=== PATIENT | female | born 1955 | race Caucasian/White ===

== ENCOUNTER → 2016-06-07 | Outpatient (CLI) | payer BC ==
[~2016-06-07] MED LIST: ADVIN10/60 INH; ALBU1AER9 INH; ASPI325T4 PO; ATOR80TA PO; GLC500 PO; GLIM2TAB PO; ISOS30TA35 PO; LISI5TAB3 PO; LPRUNK PO; ZNTUNK
--- NOTE | 2016-06-07 16:37 | MAMMOGRAPHY REPORT ---
BILATERAL DIGITAL SCREENING MAMMOGRAM TOMOSYNTHESIS WITH CAD: 06/07/2016 CLINICAL HISTORY: Routine screening examination. TECHNIQUE: Breast tomosynthesis in addition to standard 2D mammography was performed. Current study was also evaluated with a Computer Aided Detection (CAD) system. COMPARISON: Comparison is made to exams dated: 06/05/2015 mammogram, 05/20/2015 mammogram, 05/03/2013 mammogram, and 04/26/2012 mammogram - [facility]. BREAST COMPOSITION: There are scattered areas of fibroglandular density in both breasts. FINDINGS: The single pattern is similar to prior exams. There are multiple bilateral benign rim chiquita cifications in the breasts. A stable metallic biopsy marker in the right upper outer quadrant. No new suspicious mass, architectural distortion or cluster of microcalcifications is seen. IMPRESSION: ACR BI-RADS CATEGORY 1: NEGATIVE There is no mammographic evidence of malignancy. A 1 year screening mammogram is recommended. The p atient will receive written notification of the results. Approximately 10% of breast cancers are not detected with mammography. A negative mammographic repor t should not delay biopsy if a clinically suggestive mass is present. Delores Presley M.D. ay/:06/07/2016 15:23:19 Impregnator And Drier Helper: Katt DENISE(Sandra)(Eddie), [facility] letter sent: Normal 1/2 BI-RADS Code: ACR BI-RADS Category 1: Negative
== END | disposition home or self-care (01) ==
LOC: C.MAMM 11:13
PROVIDERS: ATTEND Internal Medicine
DX: Z12.31 Encounter for screening mammogram for malignant neoplasm of breast (principal)

== ENCOUNTER → 2016-06-21 | Outpatient (CLI) | payer BC ==
--- NOTE | 2016-06-21 14:13 | DIAGNOSTIC IMAGING REPORT ---
TWO VIEW CHEST CLINICAL HISTORY: Cough of 3 months duration. Wheezing. FINDINGS: PA and lateral chest radiographs are correlated with chest CT dated 09/17/2015. The patient is status post midline sternotomy. The heart is enlarged and there is atherosclerotic calcification of the thoracic ureter. The pulmonary vasculature is noncongested. Chronic interstitial thickening is similar to previous. There is no airspace consolidation or pleural effusion. There is no pneumothorax. The skeletal structures are osteopenic. The bony thorax appears intact. Cholecystectomy clips are identified in the right upper quadrant. IMPRESSION: Cardiac enlargement with no acute cardiopulmonary abnormality. Electronically signed by: Morro Alexander M.D. 06/21/2016 2:11 PM Dictated Date/Time: 06/21/2016 2:09 PM
== END | disposition home or self-care (01) ==
LOC: C.RAD 13:48
PROVIDERS: ATTEND Internal Medicine
DX: R05 Cough (principal); I51.7 Cardiomegaly

== ENCOUNTER → 2016-06-23 | Outpatient (CLI) | payer BC ==
[2016-06-23 12:23] LABS: HEMATOCRIT 44.5 % (37-47); MEAN CELL VOLUME 93.7 fL (80-100); MEAN CORPUSCULAR HEMOGLOBIN 30.5 pg (25-34); MEAN CORPUSCULAR HGB CONC 32.6 g/dl (32-36); MEAN PLATELET VOLUME 10.4 fL (7.4-10.4); PLATELET COUNT 247 K/uL (130-400); RED BLOOD COUNT 4.75 M/uL (4.2-5.4); WHITE BLOOD COUNT 7.47 K/uL (4.8-10.8)
[2016-06-23 12:34] LABS: ESTIMATED AVERAGE GLUCOSE 163 mg/dl; HA1C FLAG Normal (Normal)
[2016-06-23 12:43] LABS: ALT/SGPT 36 U/L (12-78); BLOOD UREA NITROGEN 14 mg/dl (7-18); BUN/CREATININE RATIO 15.8 (10-20); CALCIUM 9.3 mg/dl (8.5-10.1); CARBON DIOXIDE 26 mmol/L (21-32); CHLORIDE 102 mmol/L (98-107); CHOLESTEROL 206 mg/dl (0-200); CREATININE 0.86 mg/dl (0.60-1.20); GLUCOSE 156 mg/dl (70-99); POTASSIUM 4.3 mmol/L (3.5-5.1); SODIUM 139 mmol/L (136-145); TRIGLYCERIDES 157 mg/dl (0-150); VERY LOW DENSITY LIPOPROT CALC 31 mg/dl
[2016-06-23 12:54] LABS: ALB/GLOB RATIO 0.9 (0.9-2); ALKALINE PHOSPHATASE 85 U/L (45-117); AST/SGOT 24 U/L (15-37); CHOLESTEROL/HDL RATIO 4.6; HDL CHOLESTEROL 45 mg/dl; LDL CHOLESTEROL CALCULATED 130 mg/dl
[2016-06-23 13:05] LABS: RATIO 11.7 mcg/mg (0-30.0)
== END | disposition home or self-care (01) ==
LOC: C.LABBFT 07:37
PROVIDERS: ATTEND Internal Medicine
DX: I25.10 Atherosclerotic heart disease of native coronary artery without angina pectoris (principal); M85.80 Other specified disorders of bone density and structure, unspecified site; E11.9 Type 2 diabetes mellitus without complications; R05 Cough; I51.7 Cardiomegaly

== ENCOUNTER → 2016-07-07 | Outpatient (CLI) | payer BC | END | disposition home or self-care (01) | LOC: C.MAMM 11:18 | PROVIDERS: ATTEND Internal Medicine | DX: M85.80 Other specified disorders of bone density and structure, unspecified site (principal) ==

== ENCOUNTER → 2016-08-26 | Outpatient (CLI) | payer BC | END | disposition home or self-care (01) | LOC: C.LABBFT 07:47 | PROVIDERS: ATTEND Internal Medicine | DX: E55.9 Vitamin D deficiency, unspecified (principal) ==

== ENCOUNTER → 2016-11-24 | Outpatient (CLI) | payer BC ==
[2016-11-24 12:05] LABS: HEMATOCRIT 40.8 % (37-47); MEAN CELL VOLUME 95.1 fL (80-100); MEAN CORPUSCULAR HEMOGLOBIN 30.3 pg (25-34); MEAN CORPUSCULAR HGB CONC 31.9 g/dl (32-36); MEAN PLATELET VOLUME 10.4 fL (7.4-10.4); PLATELET COUNT 224 K/uL (130-400); RED BLOOD COUNT 4.29 M/uL (4.2-5.4); WHITE BLOOD COUNT 8.35 K/uL (4.8-10.8)
[2016-11-24 12:23] LABS: ALT/SGPT 44 U/L (12-78); BLOOD UREA NITROGEN 23 mg/dl (7-18); BUN/CREATININE RATIO 25.1 (10-20); CALCIUM 9.1 mg/dl (8.5-10.1); CARBON DIOXIDE 29 mmol/L (21-32); CHLORIDE 107 mmol/L (98-107); CHOLESTEROL 124 mg/dl (0-200); CREATININE 0.93 mg/dl (0.60-1.20); GLUCOSE 108 mg/dl (70-99); POTASSIUM 4.7 mmol/L (3.5-5.1); SODIUM 141 mmol/L (136-145); TRIGLYCERIDES 121 mg/dl (0-150); VERY LOW DENSITY LIPOPROT CALC 24 mg/dl
[2016-11-24 12:33] LABS: ALB/GLOB RATIO 0.8 (0.9-2); ALKALINE PHOSPHATASE 89 U/L (45-117); AST/SGOT 26 U/L (15-37); CHOLESTEROL/HDL RATIO 2.5; HDL CHOLESTEROL 49 mg/dl; LDL CHOLESTEROL CALCULATED 51 mg/dl
[2016-11-24 13:33] LABS: ESTIMATED AVERAGE GLUCOSE 146 mg/dl; HA1C FLAG Normal (Normal)
== END | disposition home or self-care (01) ==
LOC: C.LABBFT 07:26
PROVIDERS: ATTEND Internal Medicine
DX: I25.10 Atherosclerotic heart disease of native coronary artery without angina pectoris (principal); E11.65 Type 2 diabetes mellitus with hyperglycemia

== ENCOUNTER 2017-05-11 11:11 | Observation (INO) | payer BC ==
[~2017-05-11] VITALS: Ht 165.1 cm; Wt 135.0 kg
[2017-05-11] MEDS ORDERED: GLC/500 PO (11:57)
[2017-05-11] MEDS ORDERED: ATOR-24 PO (11:57)
[2017-05-11] MEDS ORDERED: METO100T44 PO ×2 (11:57)
[2017-05-11] MEDS ORDERED: CITA20TA4 PO (11:57)
[2017-05-11] MEDS ORDERED: LISI-461 PO (11:57)
[2017-05-11] MEDS ORDERED: ISOS30TA35 PO (11:57)
[2017-05-11] MEDS ORDERED: VNTHFA/IN INH (11:57)
[2017-05-11] MEDS ORDERED: GLIM2TAB2 PO (11:57)
[2017-05-11] MEDS ORDERED: ERGO500037 PO (11:57)
[2017-05-11] MEDS ORDERED: ZNTT/150 PO (11:57)
[2017-05-11] MEDS ORDERED: CYCL10TA6 PO (11:57)
[2017-05-11] MEDS ORDERED: SYMIN160 INH (11:57)
[2017-05-11] MEDS ORDERED: ASPI81TA28 PO (11:57)
[2017-05-11] MEDS ORDERED: ONDANSETRON INJ 2 MG/ML 2 ML VIAL IV STA (12:03)
[2017-05-11] MEDS ORDERED: ACETAMINOPHEN 500 MG TAB PO STA (12:03)
[2017-05-11] MEDS ORDERED: KETOROLAC TROMETHAMINE 30 MG/ML VIAL IV STA (12:03)
--- NOTE | 2017-05-11 12:11 | EMERGENCY ROOM VISIT NOTE ---
History Report prepared by Radhika: Madonna Montes Under the Supervision of: Dr. Morro Richter M.D. First contact with patient: 11:56 Chief Complaint: HIP PAIN Stated Complaint: PAIN IN HIP AND LEG History of Present Illness The patient is a 61 year old female who presents to the Emergency Room with complaints of persistent right hip pain that began five days ago. She currently rates her discomfort as a 10/10 in severity. The patient states that her pain started Monday. She denies any trauma or injury. The patient denies having any trouble in the past. She reports increased pain with ambulation. The patient states that she saw her chiropractor earlier this week due to her pain and states that this morning he ordered x-rays of the area. She states that she tried getting in to see her PCP, but could not schedule an appointment. The patient states that her pain radiates from her right hip, down her right buttocks and down her right leg. She states that she tried Advil over the counter without relief of her pain. The patient states that she had some old hydrocodone left over from an ankle injury in 2006, noting that she tried that, but states that it has only taken the edge off the pain temporarily. She denies any urinary symptoms. The patient reports hot and cold flashes. Source of History: patient Onset: five days ago Position: other (right hip) Symptom Intensity: 10/10 Quality: other (radiating) Timing: other (persistent) Modifying Factors (Worsening): movement (ambulation) Associated Symptoms: No urinary symptoms Note: Associated Symptoms: hot and cold flashes Review of Systems See HPI for pertinent positives & negatives. A total of 10 systems reviewed and were otherwise negative. Past Medical & Surgical Medical Problems: (1) Asthma (2) Diabetes (3) Heart disease (4) History of cholecystectomy (5) Hypertension Surgical Problems: (1) H/O: hysterectomy (2) S/P triple vessel bypass Family History FH: heart disease Hypertension Social History Smoking Status: Never Smoker Current/Historical Medications Scheduled Aspirin (Aspirin Ec), 81 MG PO DAILY Atorvastatin (Lipitor), 40 MG PO DAILY Budesonide/Formoterol Fumarate (Symbicort 160/4.5 Inhaler ), 2 PUFFS INH BID Citalopram Hydrobromide (Citalopram Hydrobromide), 20 MG PO DAILY Ergocalciferol (Vitamin D 26700 Unit), 50,000 UNIT PO WK Glimepiride (Glimepiride), 2 MG PO DAILY Isosorbide Mononitrate Ext Rel (Imdur Ext Rel), 30 MG PO DAILY Lisinopril (Zestril), 10 MG PO DAILY Metformin Hcl (Glucophage), 500 MG PO BIDM Metoprolol Succ (Toprol Xl) (Toprol-Xl ), 50 MG PO QAM Metoprolol Succ (Toprol Xl) (Toprol-Xl ), 100 MG PO QPM Ranitidine (Zantac), 150 MG PO DAILY Scheduled PRN Albuterol Hfa (Ventolin Hfa), 2 PUFFS INH Q4H PRN for SOB/Wheezing Cyclobenzaprine Hcl (Flexeril), 10 MG PO TID PRN for Muscle Spasms Allergies Coded Allergies: Azithromycin (Verified Allergy, Intermediate, RASH, 05/11/17) Dust Mite Extract (Verified Allergy, Intermediate, ALLERGIC, 03/13/12) Physical Exam Vital Signs Date Time Temp Pulse Resp B/P (MAP) Pulse Ox O2 Delivery O2 Flow Rate FiO2 05/11/17 13:19 58 20 135/70 100 Room Air 05/11/17 11:13 36.6 62 20 198/74 100 Room Air Physical Exam GENERAL: Patient is in mild distress secondary to pain HEENT: No acute trauma, normocephalic atraumatic, mucous membranes moist, no nasal congestion, no scleral icterus. NECK: No stridor, no adenopathy, no meningismus, trachea is midline. LUNGS: Clear to auscultation bilaterally, no wheeze, no rhonchi, breath sounds equal. HEART: Without murmurs gallops or rubs, regular rate and rhythm. ABDOMEN: Soft, nontender, bowel sounds positive, no hernias, no peritonitis. EXTREMITIES: Painful with movement and palpation of right hip, right hip laterally is tender, right buttock is tender, no signs of contusion, no evidence for gross deformity of the RLE, NVI distally. NEUROLOGIC: Oriented x 3, no acute motor or sensory deficits, no focal weakness. SKIN: No rash, no jaundice, no diaphoresis. Medical Decision & Procedures ER Provider Diagnostic Interpretation: Radiology results as stated below per my review and radiologist interpretation: LUMBAR SPINE WITHOUT CLINICAL HISTORY: 61 years-old Female presenting with low back and right hip and leg pain. TECHNIQUE: Multidetector CT of the lumbar spine was performed without the use of intravenous contrast. IV contrast: None. A dose lowering technique was used consistent with the principles of ALARA (as low as reasonably achievable). COMPARISON: None. CT DOSE (mGy.cm): The estimated cumulative dose is 2915.[address] right hip. FINDINGS: Genetics Physician topogram: Cholecystectomy clips, median sternotomy wires, and mediastinal surgical clips noted. Normal lumbar lordosis. Vertebral bodies maintain normal height and alignment. Normal bone density. Intervertebral disc spaces preserved. Facet arthropathy evident in the lower lumbar spine. Minimal disc bulges may be present most pronounced at L3-4. The degree of spinal canal narrowing at this level is difficult to quantify, however, no significant osseous spinal canal narrowing. Bilateral neural foraminal narrowing at L4-5 suggested, greater on the right. No acute fracture or subluxation. Mild degenerative changes of the sacroiliac joints. Remaining visualized structures demonstrate atherosclerosis of the abdominal aorta. Normal paraspinal musculature. IMPRESSION: Mild multilevel degenerative changes significant at L3-4, where there is spinal canal narrowing, and L4-5, where there is bilateral neural foraminal narrowing. This would be better characterized on MR. Electronically signed by: Adrien Bedoya M.D. 05/11/2017 12:57 PM Dictated Date/Time: 05/11/2017 12:53 PM R LOWER EXTREMITY WITHOUT CLINICAL HISTORY: 61 years-old Female presenting with right hip pain. TECHNIQUE: Multidetector CT of the right hip was performed without the use of intravenous contrast. IV contrast: None. A dose lowering technique was used consistent with the principles of ALARA (as low as reasonably achievable). COMPARISON: None. CT DOSE (mGy.cm): The estimated cumulative dose is 2915.88 mGy.cm. FINDINGS: Genetics Physician topogram: Cholecystectomy clips, mediastinal surgical clips, median sternotomy wires noted. Right hip joint congruent. No acute fracture or malalignment. No deformity of the femoral head. No advanced degenerative changes of the hip joint are evident. Degenerative changes of the symphysis pubis.. Preservation of the joint space. No evidence of a hip effusion. Normal muscle bulk. No soft tissue abnormality is evident. Visualized portion of the intrapelvic contents normal. IMPRESSION: No osseous abnormality right hip. Degenerative changes of the pubic symphysis. Electronically signed by: Adrien Bedoya M.D. 05/11/2017 12:53 PM Dictated Date/Time: 05/11/2017 12:50 PM Laboratory Results 05/11/17 12:20 Red Blood Count 4.65, Mean Corpuscular Volume 92.5, Mean Corpuscular Hemoglobin 31.2, Mean Corpuscular Hemoglobin Concent 33.7, Mean Platelet Volume 9.3, Neutrophils (%) (Auto) 76.2, Lymphocytes (%) (Auto) 16.5, Monocytes (%) (Auto) 6.1, Eosinophils (%) (Auto) 0.9, Basophils (%) (Auto) 0.1, Neutrophils # (Auto) 6.91, Lymphocytes # (Auto) 1.50, Monocytes # (Auto) 0.55, Eosinophils # (Auto) 0.08, Basophils # (Auto) 0.01 05/11/17 12:20 Test 05/11/17 12:20 05/11/17 13:30 White Blood Count 9.07 K/uL (4.8-10.8) Red Blood Count 4.65 M/uL (4.2-5.4) Hemoglobin 14.5 g/dL (12.0-16.0) Hematocrit 43.0 % (37-47) Mean Corpuscular Volume 92.5 fL (80-100) Mean Corpuscular Hemoglobin 31.2 pg (25-34) Mean Corpuscular Hemoglobin Concent 33.7 g/dl (32-36) Platelet Count 252 K/uL (130-400) Mean Platelet Volume 9.3 fL (7.4-10.4) Neutrophils (%) (Auto) 76.2 % Lymphocytes (%) (Auto) 16.5 % Monocytes (%) (Auto) 6.1 % Eosinophils (%) (Auto) 0.9 % Basophils (%) (Auto) 0.1 % Neutrophils # (Auto) 6.91 K/uL (1.4-6.5) Lymphocytes # (Auto) 1.50 K/uL (1.2-3.4) Monocytes # (Auto) 0.55 K/uL (0.11-0.59) Eosinophils # (Auto) 0.08 K/uL (0-0.5) Basophils # (Auto) 0.01 K/uL (0-0.2) RDW Standard Deviation 46.8 fL (36.4-46.3) RDW Coefficient of Variation 14.1 % (11.5-14.5) Immature Granulocyte % (Auto) 0.2 % Immature Granulocyte # (Auto) 0.02 K/uL (0.00-0.02) Erythrocyte Sedimentation Rate 36 mm/hr (0-21) Anion Gap 10.0 mmol/L (3-11) Estimated GFR () 109.9 Estimated GFR (Non- 94.8 BUN/Creatinine Ratio 19.8 (10-20) Calcium Level 8.9 mg/dl (8.5-10.1) C-Reactive Protein 0.61 mg/dl (0-0.29) Urine Color YELLOW Urine Appearance CLEAR (CLEAR) Urine pH 8.0 (4.5-7.5) Urine Specific [place] 1.025 (1.000-1.030) Urine Protein NEG (NEG) Urine Glucose (UA) NEG (NEG) Urine Ketones 4+ (NEG) Urine Occult Blood NEG (NEG) Urine Nitrite NEG (NEG) Urine Bilirubin NEG (NEG) Urine Urobilinogen NEG (NEG) Urine Leukocyte Esterase NEG (NEG) Laboratory results reviewed by me. Medications Administered Medications (Trade) Dose Ordered Sig/Beny Route Start Time Stop Time Status Last Admin Dose Admin Ketorolac Tromethamine (Toradol Inj) 30 mg NOW STAT IV 05/11/17 12:03 05/11/17 12:06 DC 05/11/17 12:23 30 MG Acetaminophen (Tylenol Tab) 1,000 mg NOW STAT PO 05/11/17 12:03 05/11/17 12:06 DC 05/11/17 12:21 1,000 MG Morphine Sulfate (MoRPHine SULFATE INJ) 4 mg Q15M PRN IV 05/11/17 12:15 05/25/17 12:14 05/11/17 12:23 4 MG Ondansetron HCl (Zofran Inj) 4 mg NOW STAT IV 05/11/17 12:03 05/11/17 12:06 DC 05/11/17 12:23 4 MG Dexamethasone Sodium Phosphate 10 mg/Syringe 2.5 ml @ 1 mls/min NOW STAT IV 05/11/17 13:42 05/11/17 13:44 DC 05/11/17 13:58 1 MLS/MIN Hydromorphone HCl (Dilaudid Inj) 0.5 mg NOW STAT IV 05/11/17 13:42 05/11/17 13:44 DC 05/11/17 13:53 0.5 MG ED Course 1200: The patient was evaluated in room C7. A complete history and physical exam was performed. 1203: Ordered Zofran Inj 4 mg IV, Tylenol Tab 1000 mg PO, Toradol Inj 30 mg IV. 1215: Ordered Morphine Sulfate 4 mg IV. 1339: I reevaluated the patient and she is still experiencing pain. I discussed the test results with her and I discussed the treatment plan. She verbalized complete understanding and agreement. She is going to be evaluated for further treatment. 1342: Ordered Dilaudid Inj 0.5 mg IV, Dexamethasone Sodium Phosphate 10 mg/ Syringe 2.5 ml @ 1 mls/min IV. 1352: I discussed the patients case with AMANDA Zee. He is going to evaluate the patient for further treatment. Medical Decision The patient is a 61 year old female who presents to the ED with complaints of right hip pain. Differential diagnoses considered include Osteoarthritis, joint effusion, sciatica, nerve impingement, herniated disc disease, bursitis, fracture . There is no leukocytosis or concerning anemia. No significant electrolyte abnormality or kidney failure. Urinalysis suggests some possible dehydration, no infection. Sedimentation rate and CRP levels were both mildly elevated. Lumbar spine CT shows some areas of stenosis, no fracture. Right hip CT does not show fracture or significant arthritis. Patient received oral Tylenol, IV Zofran, IV morphine, IV Toradol, IV Decadron and eventually some IV Dilaudid. The patient does feel improved but her pain becomes more severe with movement. The patient likely has nerve impingement/sciatica, she may have a herniated disc. She has failed outpatient treatment. She is unable to get comfortable with IV narcotic medication and IV nonsteroidal medication. I think a hospital stay is warranted. I spoke to the patient and case management. The on-call hospitalist was consulted. Medication Reconcilliation Current Medication List: was personally reviewed by me Consults Time Called: 134 Consulting Physician: AMANDA Zee Returned Call: [phone] I discussed the patients case with AMANDA Zee. He is going to evaluate the patient for further treatment. Impression Primary Impression: Right sided sciatica Additional Impressions: Right hip pain Lower back pain Failure of outpatient treatment Scribe Attestation The scribe's documentation has been prepared under my direction and personally reviewed by me in its entirety. I confirm that the note above accurately reflects all work, treatment, procedures, and medical decision making performed by me. Departure Information Dispostion Being Evaluated By Hospitalist Referrals Jorge Hebert M.D. (PCP) Problem Qualifiers
[2017-05-11] MEDS ORDERED: MoRPHine SULFATE 4 MG/ML 1 ML CARP\\VIAL IV PRN (12:15)
[2017-05-11 12:45] LABS: BASO % 0.1 %; BASO ABS # 0.01 K/uL (0-0.2); COMPLETE YES; EOS % 0.9 %; IG% 0.2 %; LYMPH % 16.5 %; MEAN CELL VOLUME 92.5 fL (80-100); MEAN CORPUSCULAR HEMOGLOBIN 31.2 pg (25-34); MEAN CORPUSCULAR HGB CONC 33.7 g/dl (32-36); MEAN PLATELET VOLUME 9.3 fL (7.4-10.4); MONO % 6.1 %; NEUT % 76.2 %; PLATELET COUNT 252 K/uL (130-400); RED BLOOD COUNT 4.65 M/uL (4.2-5.4); WHITE BLOOD COUNT 9.07 K/uL (4.8-10.8)
--- NOTE | 2017-05-11 12:54 | DIAGNOSTIC IMAGING REPORT ---
R LOWER EXTREMITY WITHOUT CLINICAL HISTORY: 61 years-old Female presenting with right hip pain. TECHNIQUE: Multidetector CT of the right hip was performed without the use of intravenous contrast. IV contrast: None. A dose lowering technique was used consistent with the principles of ALARA (as low as reasonably achievable). COMPARISON: None. CT DOSE (mGy.cm): The estimated cumulative dose is 2915.88 mGy.cm. 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 Right hip joint congruent. No acute fracture or malalignment. No deformity of the femoral head. No advanced degenerative changes of the hip joint are evident. Degenerative changes of the symphysis pubis.. Preservation of the joint space. No evidence of a hip effusion. Normal muscle bulk. No soft tissue abnormality is evident. Visualized portion of the intrapelvic contents normal. IMPRESSION: No osseous abnormality right hip. Degenerative changes of the pubic symphysis. Electronically signed by: Adrien Bedoya M.D. 05/11/2017 12:53 PM Dictated Date/Time: 05/11/2017 12:50 PM
--- NOTE | 2017-05-11 12:59 | DIAGNOSTIC IMAGING REPORT ---
LUMBAR SPINE WITHOUT CLINICAL HISTORY: 61 years-old Female presenting with low back and right hip and leg pain. TECHNIQUE: Multidetector CT of the lumbar spine was performed without the use of intravenous contrast. IV contrast: None. A dose lowering technique was used consistent with the principles of ALARA (as low as reasonably achievable). COMPARISON: None. CT DOSE (mGy.cm): The estimated cumulative dose is 2915.[address] right hip. 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 Normal lumbar lordosis. Vertebral bodies maintain normal height and alignment. Normal bone density. Intervertebral disc spaces preserved. Facet arthropathy evident in the lower lumbar spine. Minimal disc bulges may be present most pronounced at L3-4. The degree of spinal canal narrowing at this level is difficult to quantify, however, no significant osseous spinal canal narrowing. Bilateral neural foraminal narrowing at L4-5 suggested, greater on the right. No acute fracture or subluxation. Mild degenerative changes of the sacroiliac joints. Remaining visualized structures demonstrate atherosclerosis of the abdominal aorta. Normal paraspinal musculature. IMPRESSION: Mild multilevel degenerative changes significant at L3-4, where there is spinal canal narrowing, and L4-5, where there is bilateral neural foraminal narrowing. This would be better characterized on MR. Electronically signed by: Adrien Bedoya M.D. 05/11/2017 12:57 PM Dictated Date/Time: 05/11/2017 12:53 PM
[2017-05-11 13:02] LABS: BLOOD UREA NITROGEN 14 mg/dl (7-18); BUN/CREATININE RATIO 19.8 (10-20); C-REACTIVE PROTEIN 0.61 mg/dl (0-0.29); CALCIUM 8.9 mg/dl (8.5-10.1); CARBON DIOXIDE 23 mmol/L (21-32); CHLORIDE 105 mmol/L (98-107); GLUCOSE 105 mg/dl (70-99); POTASSIUM 3.8 mmol/L (3.5-5.1); SODIUM 138 mmol/L (136-145)
[2017-05-11] MEDS ORDERED: HYDROmorphone INJ 2 MG/ML SYR/VIAL IV STA (13:42)
[2017-05-11] MEDS ORDERED: DEXAMETHASONE INJ 10 MG in SYRINGE 0 ML IV STA (13:42)
[2017-05-11] MEDS ORDERED: DEXAMETHASONE **PF** INJ 10 MG/ML VIAL ONE (13:56)
[2017-05-11] MEDS ORDERED: ALBUTEROL HFA 8 GM INHALER INH PRN (14:00)
[2017-05-11] MEDS ORDERED: ONDANSETRON INJ 2 MG/ML 2 ML VIAL IV PRN (14:00)
[2017-05-11] MEDS ORDERED: HYDROCODONE/ACETAMI 10/325 TAB PO PRN (14:00)
[2017-05-11] MEDS ORDERED: CYCLOBENZAPRINE HCL 10 MG TAB PO PRN (14:00)
[2017-05-11] MEDS ORDERED: ACETAMINOPHEN 325 MG TAB PO PRN (14:00)
[2017-05-11 14:04] LABS: URINE APPEARANCE CLEAR (CLEAR); URINE BILIRUBIN NEG (NEG); URINE COLOR YELLOW; URINE NITRITE NEG (NEG); URINE SPECIFIC GRAVITY 1.025 (1.000-1.030); UROBILINOGEN NEG (NEG)
[2017-05-11 14:10] VITALS: O2SAT 100; Ht 165.1 cm; Wt 135.0 kg
[2017-05-11 14:11] LABS: MANUAL MICROSCOPIC REQUIRED? NO; REVIEW REQ? NO
[2017-05-11] MEDS ORDERED: IV FLUIDS COMPLETED PRN (15:00)
[2017-05-11] MEDS ORDERED: GLUCOSE 40% GEL 15 GM TUBE PO PRN (15:30)
[2017-05-11] MEDS ORDERED: DEXTROSE 50% 50 ML SYR IV PRN (15:30)
[2017-05-11] MEDS ORDERED: GLUCOSE 10 TABS/TUBE PO PRN (15:30)
[2017-05-11] MEDS ORDERED: GLUCAGON FOR INJ 1 MG VIAL SQ PRN (15:30)
[2017-05-11 15:38] LABS: PROTHROMBIN TIME (PATIENT) 10.9 SECONDS (9.0-12.0)
[2017-05-11 15:57] VITALS: BP 178/84; PULSE 57; TEMP 36.6; O2SAT 98
[2017-05-11] MEDS: INSULIN ASPART 100 UNITS/ML 3 ML PEN SC SCH ×3 (16:00→21:00)
--- NOTE | 2017-05-11 16:38 | History and Physical ---
History & Physical Date & Time of Service: May 11, 2017 at 16:14 Chief Complaint: Lower Back Pain, Right Sided Sciatica Primary Care Physician: Jorge Hebert M.D. History of Present Illness Source: patient, hospital records 61 yo female with acute presentation of right sided low back pain with sharp, severe pain in her right leg all the way to her foot. She denies any history of low back pain. No recent trauma, no overuse. No fever/chills. She says that she woke up with the pain on Monday morning. Could not find a position of comfort. She had hydrocodone at home from prior surgery, she tried taking those for the pain, would not alleviate her symptoms. She denies any numbness, tingling or weakness in the right leg. She does not have any symptoms in the left leg. Her balance has been intact, no falls. Her appetite has been poor for a few days just dealing with the pain. She came to the ED today because the pain had become unbearable. In the ED she was given Toradol and Dexamethasone with no relief. She finally got some relief with Dilaudid IV. CT of her lumbar spine and right hip was performed. No acute issues with the right hip. Lumbar spine with degenerative disc disease, canal narrowing and foraminal narrowing. Past Medical/Surgical History Medical Problems: (1) Asthma Status: Chronic (2) Diabetes Status: Chronic (3) Heart disease Status: Chronic (4) History of cholecystectomy Status: Resolved (5) Hypertension Status: Chronic Surgical Problems: (1) H/O: hysterectomy Status: Resolved (2) S/P triple vessel bypass Status: Resolved Family History FH: heart disease Hypertension Father - [place] Mother - ischemic stroke Social History Smoking Status: Never Smoker Alcohol Use: none Drug Use: none Occupational Status: employed Immunizations History of Influenza Vaccine: Yes Influenza Vaccine Date: Aug 12, 2011 History of Tetanus Vaccine?: No History of Pneumococcal: Yes Pneumococcal Date: Mar 13, 2012 History of Hepatitis B Vaccine: Yes Hepatitis Immunization Date: Aug 12, 2011 Multi-Drug Resistant Organisms History of MDRO: No Allergies Coded Allergies: Azithromycin (Verified Allergy, Intermediate, RASH, 05/11/17) Dust Mite Extract (Verified Allergy, Intermediate, ALLERGIC, 03/13/12) Home Medications Scheduled Aspirin (Aspirin Ec), 81 MG PO DAILY Atorvastatin (Lipitor), 40 MG PO DAILY Budesonide/Formoterol Fumarate (Symbicort 160/4.5 Inhaler ), 2 PUFFS INH BID Citalopram Hydrobromide (Citalopram Hydrobromide), 20 MG PO DAILY Ergocalciferol (Vitamin D 77615 Unit), 50,000 UNIT PO WK Glimepiride (Glimepiride), 2 MG PO DAILY Isosorbide Mononitrate Ext Rel (Imdur Ext Rel), 30 MG PO DAILY Lisinopril (Zestril), 10 MG PO DAILY Metformin Hcl (Glucophage), 500 MG PO BIDM Metoprolol Succ (Toprol Xl) (Toprol-Xl ), 50 MG PO QAM Metoprolol Succ (Toprol Xl) (Toprol-Xl ), 100 MG PO QPM Ranitidine (Zantac), 150 MG PO DAILY Scheduled PRN Albuterol Hfa (Ventolin Hfa), 2 PUFFS INH Q4H PRN for SOB/Wheezing Cyclobenzaprine Hcl (Flexeril), 10 MG PO TID PRN for Muscle Spasms Review of Systems Constitutional: No fever, No chills, No sweats, No weight loss, No weakness, No fatigue, No problem reported Eyes: No worsening of vision, No eye pain, No redness, No discharge, No diplopia, No problem reported ENT: No hearing loss, No unusual epistaxis, No nasal symptoms, No sore throat, No tinnitus, No dental problems, No trouble swallowing, No problem reported Respiratory: No cough, No sputum, No wheezing, No shortness of breath, No dyspnea on exertion, No dyspnea at rest, No hemoptysis, No problem reported Cardiovascular: No chest pain, No orthopnea, No PND, No edema, No claudication , No palpitations, No problem reported Abdomen: No pain, No nausea, No vomiting, No diarrhea, No constipation, No GI bleeding, No problem reported Musculoskeletal: + joint pain (low back, right leg), + muscle pain (right leg) Genitourinary - Female: No dysuria, No urinary frequency, No urinary urgency, No urinary incontinence, No urinary retention, No hematuria Neurologic: No memory loss, No paralysis, No weakness, No numbness/tingling, No vertigo, No balance problems, No problem reported Psychiatric: No depression symptoms, No anhedonism, No anxiety, No insomnia, No substance abuse, No problem reported Endocrine: No fatigue, No excessive thirst, No excessive urination, No problem reported Hematologic / Lymphatic: No abnormal bleeding/bruising, No clotting problems, No swollen lymph nodes, No night sweats, No problem reported Integumentary: No rash, No itch, No new/changing skin lesions, No color change , No bleeding, No problem reported Allergic / Immunologic: No environmental allergies, No seasonal allergies, No pet sensitivities, No food allergies, No hives, No frequent infections, No poor healing, No prolonged convalescence, No problem reported Physical Exam Vital Signs Date Time Temp Pulse Resp B/P (MAP) Pulse Ox O2 Delivery O2 Flow Rate FiO2 05/11/17 14:33 57 16 197/73 95 Room Air 05/11/17 14:10 100 Room Air 05/11/17 13:19 58 20 135/70 100 Room Air 05/11/17 11:13 36.6 62 20 198/74 100 Room Air General Appearance: no apparent distress, + obese Head: normocephalic, atraumatic Eyes: normal inspection, EOMI, sclerae normal ENT: normal ENT inspection, hearing grossly normal, pharynx normal Neck: supple, no adenopathy, no JVD, trachea midline Respiratory/Chest: chest non-tender, lungs clear, normal breath sounds, no respiratory distress, no accessory muscle use Cardiovascular: regular rate, rhythm, no edema, no gallop, no JVD, no murmur, normal peripheral pulses Abdomen/GI: normal bowel sounds, non tender, soft, no organomegaly Back: + muscle spasm, + decreased range of motion Extremities/Musculoskelatal: normal inspection, no calf tenderness, normal capillary refill, no pedal edema, non-tender, pelvis stable, + pertinent finding (+ straightl leg raise test on the right) 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, no motor/sensory deficits, alert, normal mood/affect, normal reflexes, oriented x 3 Skin: normal color, warm/dry, no rash Lymphatic: no adenopathy Diagnostics Laboratory Results Results Past 24 Hours Test 05/11/17 12:20 05/11/17 13:30 Range/Units White Blood Count 9.07 4.8-10.8 K/uL Red Blood Count 4.65 4.2-5.4 M/uL Hemoglobin 14.5 12.0-16.0 g/dL Hematocrit 43.0 37-47 % Mean Corpuscular Volume 92.5 80-100 fL Mean Corpuscular Hemoglobin 31.2 25-34 pg Mean Corpuscular Hemoglobin Concent 33.7 32-36 g/dl Platelet Count 252 130-400 K/uL Mean Platelet Volume 9.3 7.4-10.4 fL Neutrophils (%) (Auto) 76.2 % Lymphocytes (%) (Auto) 16.5 % Monocytes (%) (Auto) 6.1 % Eosinophils (%) (Auto) 0.9 % Basophils (%) (Auto) 0.1 % Neutrophils # (Auto) 6.91 1.4-6.5 K/uL Lymphocytes # (Auto) 1.50 1.2-3.4 K/uL Monocytes # (Auto) 0.55 0.11-0.59 K/uL Eosinophils # (Auto) 0.08 0-0.5 K/uL Basophils # (Auto) 0.01 0-0.2 K/uL RDW Standard Deviation 46.8 36.4-46.3 fL RDW Coefficient of Variation 14.1 11.5-14.5 % Immature Granulocyte % (Auto) 0.2 % Immature Granulocyte # (Auto) 0.02 0.00-0.02 K/uL Erythrocyte Sedimentation Rate 36 0-21 mm/hr Prothrombin Time 10.9 9.0-12.0 SECONDS Prothromb Time International Ratio 1.0 0.9-1.1 Activated Partial Thromboplast Time 25.0 21.0-31.0 SECONDS Partial Thromboplastin Ratio 1.0 Sodium Level 138 136-145 mmol/L Potassium Level 3.8 3.5-5.1 mmol/L Chloride Level 105 98-107 mmol/L Carbon Dioxide Level 23 21-32 mmol/L Anion Gap 10.0 3-11 mmol/L Blood Urea Nitrogen 14 7-18 mg/dl Creatinine 0.70 0.60-1.20 mg/dl Estimated GFR () 109.9 Estimated GFR (Non- 94.8 BUN/Creatinine Ratio 19.8 10-20 Random Glucose 105 70-99 mg/dl Calcium Level 8.9 8.5-10.1 mg/dl C-Reactive Protein 0.61 0-0.29 mg/dl Urine Color YELLOW Urine Appearance CLEAR CLEAR Urine pH 8.0 4.5-7.5 Urine Specific Ione 1.025 1.000-1.030 Urine Protein NEG NEG Urine Glucose (UA) NEG NEG Urine Ketones 4+ NEG Urine Occult Blood NEG NEG Urine Nitrite NEG NEG Urine Bilirubin NEG NEG Urine Urobilinogen NEG NEG Urine Leukocyte Esterase NEG NEG Diagnostic Radiology LUMBAR SPINE WITHOUT CLINICAL HISTORY: 61 years-old Female presenting with low back and right hip and leg pain. IMPRESSION: Mild multilevel degenerative changes significant at L3-4, where there is spinal canal narrowing, and L4-5, where there is bilateral neural foraminal narrowing. This would be better characterized on MR. 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 Y/N: Yes Risk Level: Moderate Given or contraindicated: Enoxaparin (Lovenox)SQ Additional Copies To Jorge Hebert M.D.
[2017-05-11] MEDS: METFORMIN HCL 500 MG TAB PO SCH (18:12)
[2017-05-11] MEDS: HYDROmorphone INJ 0.5 MG/0.5 ML SYR IV PRN (19:16)
[2017-05-11] MEDS: INSULIN GLARGINE SOLOSTAR 100 UNITS/ML 3 ML PEN SC SCH (20:48)
[2017-05-11] MEDS: BUDESONIDE/FORMOTEROL FUMARATE 160/4.5 60 PUFFS/INHALER INH SCH (20:54)
[2017-05-11] MEDS: GABAPENTIN 100 MG CAP PO SCH (20:54)
[2017-05-11] MEDS ORDERED: ENOXAPARIN 40 MG/0.4 ML SYR SQ SCH (21:00)
[2017-05-11] MEDS ORDERED: METOPROLOL SUCC 50MG EXT REL TAB PO SCH (21:00)
[2017-05-11 22:49] VITALS: BP 137/81; PULSE 62; TEMP 36.6; O2SAT 94
--- NOTE | 2017-05-11 23:25 | DIAGNOSTIC IMAGING REPORT ---
LUMBAR SPINE MRI WITH AND WITHOUT CONTRAST HISTORY: Right leg pain. Degenerative disc disease TECHNIQUE: Multiplanar multisequence MRI of the lumbar spine was performed both before and after the intravenous administration of contrast. COMPARISON: Lumbar spine CT 05/11/2017. FINDINGS: For the purpose of the report the L5-S1 disc space will be located on axial image 27 of 30. No fracture or subluxation. The conus terminates at the L1-L2 level. Subcutaneous edema lumbar region. Visualized retroperitoneal soft tissues are unremarkable. Disc spaces are relatively preserved for age. Moderate facet osteoarthritis at L4-L5. L1-L2: No significant central canal or neural foraminal narrowing. L2-L3: No significant central canal or neural foraminal narrowing. L3-L4: No significant central canal or right-sided neural foraminal narrowing. There is a small left foraminal focal disc protrusion. This abuts and slightly displaces the exiting left L3 nerve root. Mild enhancement surrounding this disc protrusion is likely reactive. L4-L5: No significant central canal narrowing. Small broad-based posterior disc bulge. There is also a right extra foraminal focal disc protrusion which measures 11 x 8 mm best seen on axial image 22 and sagittal images 3 and 4. This compresses the exiting right L4 nerve root. Mild enhancement surrounding the disc protrusion is likely reactive. L5-S1: Small focal central disc protrusion which abuts but does not significantly displace the bilateral transiting S1 nerve roots. No significant neural foraminal narrowing. IMPRESSION: 1. Small left foraminal focal disc protrusion at L3-L4 which abuts and slightly displaces the exiting left L3 nerve root. 2. A moderate to large right extraforaminal focal disc protrusion at L4-L5 as described above which compresses the exiting right L4 nerve root. 3. Small focal central disc protrusion at L5-S1 which abuts but does not displace the bilateral transiting S1 nerve roots. Electronically signed by: Demond Arellano M.D. 05/11/2017 11:24 PM Dictated Date/Time: 05/11/2017 11:15 PM
[2017-05-11] MEDS: DEXAMETHASONE INJ 6 MG in SYRINGE 0 ML IV SCH (23:54)
[2017-05-12] MEDS: HYDROmorphone INJ 0.5 MG/0.5 ML SYR IV PRN ×3 (03:48→16:23)
[2017-05-12 06:48] LABS: COMPLETE YES; HEMATOCRIT 42.6 % (37-47); IG% 0.2 %; LYMPH % 7.1 %; LYMPH ABS # 0.72 K/uL (1.2-3.4); MEAN CELL VOLUME 93.6 fL (80-100); MEAN CORPUSCULAR HEMOGLOBIN 30.5 pg (25-34); MEAN CORPUSCULAR HGB CONC 32.6 g/dl (32-36); MEAN PLATELET VOLUME 9.4 fL (7.4-10.4); MONO % 0.8 %; NEUT % 91.9 %; PLATELET COUNT 259 K/uL (130-400); RED BLOOD COUNT 4.55 M/uL (4.2-5.4); WHITE BLOOD COUNT 10.15 K/uL (4.8-10.8)
[2017-05-12 07:14] VITALS: BP 182/82; PULSE 59; TEMP 36.9; O2SAT 93
[2017-05-12 07:15] LABS: BUN/CREATININE RATIO 26.9 (10-20); CALCIUM 8.9 mg/dl (8.5-10.1); CREATININE 0.67 mg/dl (0.60-1.20); POTASSIUM 4.2 mmol/L (3.5-5.1)
[2017-05-12] MEDS: DEXAMETHASONE INJ 6 MG in SYRINGE 0 ML IV SCH (07:36)
[2017-05-12] MEDS: GABAPENTIN 100 MG CAP PO SCH (07:41)
[2017-05-12 08:27] VITALS: BP 167/75
[2017-05-12] MEDS ORDERED: ISOSORBIDE MONONITRATE 30 MG TABCR PO SCH (09:00)
[2017-05-12] MEDS ORDERED: GLIMEPIRIDE 2 MG TAB PO SCH (09:00)
[2017-05-12] MEDS ORDERED: LISINOPRIL 10 MG TAB PO SCH (09:00)
[2017-05-12] MEDS ORDERED: ATORVASTATIN 20 MG TAB PO SCH (09:00)
[2017-05-12] MEDS ORDERED: RANITIDINE HCL 150 MG TAB PO SCH (09:00)
[2017-05-12] MEDS ORDERED: METOPROLOL SUCC 50MG EXT REL TAB PO SCH (09:00)
[2017-05-12] MEDS ORDERED: CITALOPRAM 20 MG TAB PO SCH (09:00)
[2017-05-12] MEDS ORDERED: ASPIRIN 81 MG ECTAB PO SCH (09:00)
[2017-05-12] MEDS: METFORMIN HCL 500 MG TAB PO SCH (09:16)
[2017-05-12] MEDS: BUDESONIDE/FORMOTEROL FUMARATE 160/4.5 60 PUFFS/INHALER INH SCH (09:16)
[2017-05-12] MEDS: INSULIN ASPART 100 UNITS/ML 3 ML PEN SC SCH ×2 (09:21→12:57)
[2017-05-12] MEDS: INSULIN GLARGINE SOLOSTAR 100 UNITS/ML 3 ML PEN SC SCH (09:22)
[2017-05-12] MEDS ORDERED: OXYCODONE/ACETAMINOPHEN 10/325MG TAB PO PRN (14:30)
--- NOTE | 2017-05-12 15:08 | Orthopedic Consultation ---
Orthopedic Consultation Date of Consultation: May 12, 2017. Attending Physician: Trever Melton D.O. Reason for Consultation: Right leg pain History of Present Illness This very pleasant 61-year-old female began experiencing right leg pain last Monday. Pain was immediate in onset. It was not related to any trauma fall or event. 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 She's not had any symptoms prior to this recent event. The pain became intolerable and she can't emergency room for assistance. She denies any left lower extremity pain denies any change in bowel bladder function. She gets relief when lying supine. Her pain describes involving right buttock posterior lateral thigh extending below the knee to the ankle anteriorly. Exacerbated by standing and walking. She is significantly limited secondary to the pain. Past Medical/Surgical History Medical Problems: (1) Failure of outpatient treatment Status: Acute (2) Lower back pain Status: Acute (3) Right hip pain Status: Acute (4) Right sided sciatica Status: Acute Family History FH: heart disease Hypertension Social History Smoking Status: Never Smoker Alcohol Use: none Drug Use: none Occupation Status: employed Allergies Coded Allergies: Azithromycin (Verified Allergy, Intermediate, RASH, 05/11/17) Dust Mite Extract (Verified Allergy, Intermediate, ALLERGIC, 03/13/12) Home Medications Scheduled Aspirin (Aspirin Ec), 81 MG PO DAILY Atorvastatin (Lipitor), 40 MG PO DAILY Budesonide/Formoterol Fumarate (Symbicort 160/4.5 Inhaler ), 2 PUFFS INH BID Citalopram Hydrobromide (Citalopram Hydrobromide), 20 MG PO DAILY Ergocalciferol (Vitamin D 82976 Unit), 50,000 UNIT PO WK Glimepiride (Glimepiride), 2 MG PO DAILY Isosorbide Mononitrate Ext Rel (Imdur Ext Rel), 30 MG PO DAILY Lisinopril (Zestril), 10 MG PO DAILY Metformin Hcl (Glucophage), 500 MG PO BIDM Metoprolol Succ (Toprol Xl) (Toprol-Xl ), 50 MG PO QAM Metoprolol Succ (Toprol Xl) (Toprol-Xl ), 100 MG PO QPM Ranitidine (Zantac), 150 MG PO DAILY Scheduled PRN Albuterol Hfa (Ventolin Hfa), 2 PUFFS INH Q4H PRN for SOB/Wheezing Cyclobenzaprine Hcl (Flexeril), 10 MG PO TID PRN for Muscle Spasms Current Inpatient Medications Current Inpatient Medications Medications (Trade) Dose Ordered Sig/Beny Route Start Time Stop Time Status Last Admin Dose Admin Enoxaparin Sodium (Lovenox Inj) 40 mg QPM SQ 05/11/17 21:00 06/10/17 20:59 05/11/17 21:10 40 MG Acetaminophen (Tylenol Tab) 650 mg Q4H PRN PO 05/11/17 14:00 06/10/17 13:59 Ondansetron HCl (Zofran Inj) 4 mg Q6H PRN IV 05/11/17 14:00 06/10/17 13:59 Hydromorphone HCl (Dilaudid Inj) 0.5 mg Q4 PRN IV 05/11/17 14:00 05/25/17 13:59 05/12/17 09:26 0.5 MG Albuterol (Ventolin Hfa Inhaler) 2 puffs Q4H PRN INH 05/11/17 14:00 06/10/17 13:59 Aspirin (Ecotrin Tab) 81 mg DAILY PO 05/12/17 09:00 06/11/17 08:59 05/12/17 07:39 81 MG Atorvastatin Calcium (Lipitor Tab) 40 mg DAILY PO 05/12/17 09:00 06/11/17 08:59 05/12/17 07:37 40 MG Budesonide/ Formoterol Fumarate (Symbicort 160/ 4.5 Inh) 2 puffs BID INH 05/11/17 21:00 06/10/17 20:59 05/12/17 09:16 2 PUFFS Citalopram Hydrobromide (celeXA TAB) 20 mg DAILY PO 05/12/17 09:00 06/11/17 08:59 05/12/17 07:39 20 MG Cyclobenzaprine HCl (Flexeril Tab) 10 mg TID PRN PO 05/11/17 14:00 06/10/17 13:59 Isosorbide Mononitrate (Imdur Ext Rel Tab) 30 mg DAILY PO 05/12/17 09:00 06/11/17 08:59 05/12/17 07:39 30 MG Lisinopril (Zestril Tab) 10 mg DAILY PO 05/12/17 09:00 06/11/17 08:59 05/12/17 07:40 10 MG Metformin HCl (Glucophage Tab) 500 mg BIDM PO 05/11/17 17:45 06/10/17 17:59 05/12/17 09:16 500 MG Metoprolol Succinate (Toprol Xl Tab) 50 mg QAM PO 05/12/17 09:00 06/11/17 08:59 05/12/17 07:40 50 MG Metoprolol Succinate (Toprol Xl Tab) 100 mg QPM PO 05/11/17 21:00 06/10/17 20:59 05/11/17 20:56 100 MG Ranitidine HCl (zANTac TAB) 150 mg DAILY PO 05/12/17 09:00 06/11/17 08:59 05/12/17 07:39 150 MG Insulin Aspart (novoLOG ASPART) SLIDING SCALE G... ACHS SC 05/11/17 16:00 06/10/17 15:59 05/12/17 12:57 9 UNITS Gabapentin (Neurontin Cap) 100 mg BID PO 05/11/17 21:00 06/10/17 20:59 05/12/17 07:41 100 MG Insulin Glargine (Lantus Solostar Pen) 15 units BID SC 05/11/17 21:00 06/10/17 20:59 05/12/17 09:22 15 UNITS Miscellaneous (Iv Fluids Completed) 1 ea PRN PRN N/A 05/11/17 15:00 05/11/18 14:59 Glucose (Glucose 40% Gel) 15-30 GRAMS 15 GRAMS... UD PRN PO 05/11/17 15:30 06/10/17 15:29 Glucose (Glucose Chew Tab) 4-8 Tablets 4 Tabl... UD PRN PO 05/11/17 15:30 06/10/17 15:29 Dextrose (Dextrose 50% 50ML Syringe) 25-50ML OF 50% DW IV FOR... UD PRN IV 05/11/17 15:30 06/10/17 15:29 Glucagon (Glucagon Inj) 1 mg UD PRN SQ 05/11/17 15:30 06/10/17 15:29 Oxycodone/ Acetaminophen (Percocet 10-325MG Tab) 1 tab Q4H PRN PO 05/12/17 14:30 05/26/17 14:29 Oxycodone/ Acetaminophen (Percocet 10-325MG Tab) 1 tab 1430 ONCE PO 05/13/17 14:30 05/13/17 14:31 05/12/17 14:39 1 TAB Dexamethasone (Decadron Tab) 4 mg QID PO 05/12/17 17:00 06/11/17 16:59 Physical Exam Date Time Temp Pulse Resp B/P (MAP) Pulse Ox O2 Delivery O2 Flow Rate FiO2 05/12/17 08:27 167/75 (105) 05/12/17 07:40 Room Air 05/12/17 07:14 36.9 59 18 182/82 (115) 93 Room Air 05/12/17 00:00 Room Air 05/11/17 22:49 36.6 62 16 137/81 (99) 94 Room Air 05/11/17 18:40 Room Air 05/11/17 16:20 Room Air 05/11/17 15:57 36.6 57 18 178/84 (115) 98 Room Air Laboratory Results Last 24 Hours Test 05/11/17 16:30 05/11/17 20:41 05/12/17 05:57 05/12/17 12:02 Bedside Glucose 125 mg/dl 146 mg/dl 238 mg/dl White Blood Count 10.15 K/uL Red Blood Count 4.55 M/uL Hemoglobin 13.9 g/dL Hematocrit 42.6 % Mean Corpuscular Volume 93.6 fL Mean Corpuscular Hemoglobin 30.5 pg Mean Corpuscular Hemoglobin Concent 32.6 g/dl Platelet Count 259 K/uL Mean Platelet Volume 9.4 fL Neutrophils (%) (Auto) 91.9 % Lymphocytes (%) (Auto) 7.1 % Monocytes (%) (Auto) 0.8 % Eosinophils (%) (Auto) 0.0 % Basophils (%) (Auto) 0.0 % Neutrophils # (Auto) 9.33 K/uL Lymphocytes # (Auto) 0.72 K/uL Monocytes # (Auto) 0.08 K/uL Eosinophils # (Auto) 0.00 K/uL Basophils # (Auto) 0.00 K/uL RDW Standard Deviation 48.6 fL RDW Coefficient of Variation 14.3 % Immature Granulocyte % (Auto) 0.2 % Immature Granulocyte # (Auto) 0.02 K/uL Sodium Level 136 mmol/L Potassium Level 4.2 mmol/L Chloride Level 104 mmol/L Carbon Dioxide Level 25 mmol/L Anion Gap 7.0 mmol/L Blood Urea Nitrogen 18 mg/dl Creatinine 0.67 mg/dl Est Creatinine Clear Calc Drug Dose 125.9 ml/min Estimated GFR () 111.5 Estimated GFR (Non- 96.2 BUN/Creatinine Ratio 26.9 Random Glucose 146 mg/dl Calcium Level 8.9 mg/dl Magnesium Level 2.0 mg/dl Assessment & Plan Assessment far lateral disc herniation at L4 5 on the right. Plan long discussion with this patient reviewing her MRI findings and clinical presentation. She clearly has a severe L4 radiculopathy related to the far lateral disc herniation. She is obtaining some relief with the medication and bedrest. We discussed possible consultation with interventional pain management for ultimately far lateral discectomy. She will consider these options and will be following her throughout the weekend.
[2017-05-12 15:18] VITALS: BP 116/70; PULSE 53; TEMP 36.7; O2SAT 94
[2017-05-12 15:45] VITALS: BP 138/60; PULSE 58; O2SAT 92
[2017-05-12] MEDS ORDERED: DXM/4 PO (16:07)
[2017-05-12] MEDS ORDERED: OXYC-88 PO (16:07)
--- NOTE | 2017-05-12 16:16 | Discharge Instructions ---
Discharge Instructions Date of Service May 12, 2017. Admission Reason for Admission: Lower Back Pain, Right Sided Sciatica Discharge Discharge Diagnosis / Problem: disc related back pain Discharge Goals Goal(s): Diagnostic testing, Therapeutic intervention Activity Recommendations Activity Limitations: as noted below (take it easy until after surgery, walk only with the walker) . Instructions / Follow-Up Instructions / Follow-Up disc related back pain -fortunately Dr Salinas got you approved for surgery and said he is planning on being able to do this for you monday - anticipate calls from his office on when/ where to arrive -don't eat or drink after midnight monday going into monday unless directed otherwise by Dr Salinas/ his office -take the steroids (dexamethasone) four times a day tomorrow, then three times a day monday, with your last dose being around dinner time -use the percocet (oxycodone/acetaminophen) up to every four hours as needed for pain; it can make you groggy or constipated Current Hospital Diet Patient's current hospital diet: Diabetes Type 2 Diet Discharge Diet Recommended Diet: Diabetes Type 2 Diet Pending Studies Studies pending at discharge: no Medical Emergencies . Who to Call and When: Medical Emergencies: If at any time you feel your situation is an emergency, please call 911 immediately. . Non-Emergent Contact Non-Emergency issues call your: Primary Care Provider . . "Provider Documentation" section prepared by Trever Melton. . VTE Core Measure Inpt VTE Proph given/why not?: Enoxaparin (Lovenox) [place] Drug Monitoring Program Search Results: patient reviewed within database, no issues identified
[2017-05-12 16:32] VITALS: BP 116/70; PULSE 53; TEMP 36.7; O2SAT 94
[2017-05-12] MEDS ORDERED: DEXAMETHASONE 4 MG TAB PO SCH (17:00)
--- NOTE | 2017-05-12 18:09 | Discharge Summary ---
Discharge Summary Date of Service May 12, 2017. Discharge Summary Admission Date: May 11, 2017 at 13:58 Discharge Date: May 12, 2017 Discharge Disposition: Home Principal Diagnosis: lumbar radiculopathy Immunizations: Have You Had Influenza Vaccine: Yes Influenza Vaccine Date: Aug 12, 2011 History of Tetanus Vaccine?: No History of Pneumococcal: Yes Pneumococcal Date: Mar 13, 2012 History of Hepatitis B Vaccine: Yes Hepatitis Immunization Date: Aug 12, 2011 Procedures: LUMBAR SPINE MRI WITH AND WITHOUT CONTRAST HISTORY: Right leg pain. Degenerative disc disease TECHNIQUE: Multiplanar multisequence MRI of the lumbar spine was performed both before and after the intravenous administration of contrast. COMPARISON: Lumbar spine CT 05/11/2017. FINDINGS: For the purpose of the report the L5-S1 disc space will be located on axial image 27 of 30. No fracture or subluxation. The conus terminates at the L1-L2 level. Subcutaneous edema lumbar region. Visualized retroperitoneal soft tissues are unremarkable. Disc spaces are relatively preserved for age. Moderate facet osteoarthritis at L4-L5. L1-L2: No significant central canal or neural foraminal narrowing. L2-L3: No significant central canal or neural foraminal narrowing. L3-L4: No significant central canal or right-sided neural foraminal narrowing. There is a small left foraminal focal disc protrusion. This abuts and slightly displaces the exiting left L3 nerve root. Mild enhancement surrounding this disc protrusion is likely reactive. L4-L5: No significant central canal narrowing. Small broad-based posterior disc bulge. There is also a right extra foraminal focal disc protrusion which measures 11 x 8 mm best seen on axial image 22 and sagittal images 3 and 4. This compresses the exiting right L4 nerve root. Mild enhancement surrounding the disc protrusion is likely reactive. L5-S1: Small focal central disc protrusion which abuts but does not significantly displace the bilateral transiting S1 nerve roots. No significant neural foraminal narrowing. IMPRESSION: 1. Small left foraminal focal disc protrusion at L3-L4 which abuts and slightly displaces the exiting left L3 nerve root. 2. A moderate to large right extraforaminal focal disc protrusion at L4-L5 as described above which compresses the exiting right L4 nerve root. 3. Small focal central disc protrusion at L5-S1 which abuts but does not displace the bilateral transiting S1 nerve roots. Electronically signed by: Demond Arellano M.D. 05/11/2017 11:24 PM Consultations: ortho spine Medication Reconciliation New Medications: Dexamethasone (Decadron) 4 Mg Tab 4 MG PO UD, #7 TAB 1 po qid on 05/13, 1 po tid on 05/14 Oxycodone/Acetaminophen 10MG/325MG (Oxycodone/Acetaminophen 10MG/325MG) 1 Tab Tab 1 TAB PO 1430, #15 TAB Continued Medications: Albuterol Hfa (Ventolin Hfa) 200 Puffs/46736 Mcg Aers 2 PUFFS INH Q4H PRN for SOB/Wheezing, INHALER Aspirin (Aspirin Ec) 81 Mg Tab 81 MG PO DAILY Atorvastatin (Lipitor) 40 Mg Tab 40 MG PO DAILY, TAB Budesonide/Formoterol Fumarate (Symbicort 160/4.5 Inhaler ) Aero 2 PUFFS INH BID, INHALER Citalopram Hydrobromide (Citalopram Hydrobromide) 20 Mg Tab 20 MG PO DAILY for 90 Days, #90 TAB 3 Refills Cyclobenzaprine Hcl (Flexeril) 10 Mg Tab 10 MG PO TID PRN for Muscle Spasms, TAB Ergocalciferol (Vitamin D 82375 Unit) 50,000 Unit Cap 29112 UNIT PO WK, CAP Glimepiride (Glimepiride) 2 Mg Tab 2 MG PO DAILY for 90 Days, #90 TAB 3 Refills Isosorbide Mononitrate Ext Rel (Imdur Ext Rel) 30 Mg Tabcr 30 MG PO DAILY, TAB Lisinopril (Zestril) 10 Mg Tab 10 MG PO DAILY, TAB Metformin Hcl (Glucophage) 500 Mg Tab 500 MG PO BIDM, TAB Metoprolol Succ (Toprol Xl) (Toprol-Xl ) 100 Mg Tabcr 50 MG PO QAM, TAB Metoprolol Succ (Toprol Xl) (Toprol-Xl ) 100 Mg Tabcr 100 MG PO QPM, TAB Ranitidine (Zantac) 150 Mg Tab 150 MG PO DAILY, TAB Discharge Exam Physical Exam: General Appearance: no apparent distress Eyes: EOMI ENT: hearing grossly normal Neck: trachea midline Respiratory/Chest: no respiratory distress, no accessory muscle use Extremities: normal inspection Neurologic/Psychiatric: anesthesiology resident II-XII nml as tested, alert, normal mood/affect Skin: normal color, warm/dry Hospital Course lumbar radiculopathy -for surgery monday -pain controlled - stable for home on decadron and percocet -completed FMLA and redundant other work paperwork and gave it to her Total Time Spent: Greater than 30 minutes This includes examination of the patient, discharge planning, medication reconciliation, and communication with other providers. Discharge Instructions Please refer to the electronic Patient Visit Report (Discharge Instructions) for additional information. Additional Copies To Harmeet Salinas D.O.; Jorge Hebert M.D.
[2017-05-13] MEDS ORDERED: OXYCODONE/ACETAMINOPHEN 10/325MG TAB PO ONE (14:30)
[2017-05-15] MEDS ORDERED: OXYC-88 PO (14:53)
== END 2017-05-12 17:05 | disposition home or self-care (01) ==
LOC: C.EDB 11:12 → C.MSN 13:58 → ENRESERV 14:49
PROVIDERS: ADMIT Internal Medicine; ATTEND Family Medicine
DX: M54.41 Lumbago with sciatica, right side (principal); I25.10 Atherosclerotic heart disease of native coronary artery without angina pectoris; I10 Essential (primary) hypertension; E11.9 Type 2 diabetes mellitus without complications; J45.909 Unspecified asthma, uncomplicated; Z95.1 Presence of aortocoronary bypass graft; Z79.82 Long term (current) use of aspirin; Z79.84 Long term (current) use of oral hypoglycemic drugs; Z79.899 Other long term (current) drug therapy

== ENCOUNTER → 2017-05-15 | Day surgery (SDC) | payer BC ==
[~2017-05-15] VITALS: Ht 165.1 cm; Wt 136.5 kg
[~2017-05-15] MED LIST changes: +ACETAMINOPHEN 325 MG TAB PO PRN; -ADVIN10/60 INH; -ALBU1AER9 INH; -ASPI325T4 PO; +ASPI81TA28 PO; +ATOR-24 PO; -ATOR80TA PO; +ATROPINE SULFATE 0.1 MG/ML 5ML SYR IV PRN; +BACITRACIN 50000 UNIT VIAL ONE; +BUPIVACAINE/EPINEPHRINE 0.5% MPF 1:200,000 30 ML VIAL ONE; +CEFAZOLIN 1000MG IV PUSH 5 ML IV SCH; +CEFAZOLIN 3000MG IV PUSH 15 ML IV SCH; +CITA20TA4 PO; +CYCL10TA6 PO; +DEXAMETHASONE SOD INJ 4 MG/ML VIAL ONE; +DXM/4 PO; +ERGO500037 PO; +EpHEDrine SULFATE INJ 50 MG/ML AMP IV PRN; +FENTANYL CITRATE INJ 50 MCG/1 ML 2 ML VIAL IV PRN; +FENTANYL CITRATE INJ 50 MCG/1 ML 2 ML VIAL ONE; +FLOSEAL HEMOSTATIC MATRIX 5ML TOP ONE; +GLC/500 PO; -GLC500 PO; -GLIM2TAB PO; +GLIM2TAB2 PO; +GLYCOPYRROLATE INJ 0.2 MG/ML VIAL ONE; +HYDROmorphone INJ 1 MG/ML SYR IV PRN; +HYDROmorphone INJ 2 MG/ML SYR/VIAL ONE; +HydrALAZINE HCL 20 MG/ML VIAL ONE; +KETOROLAC TROMETHAMINE 30 MG/ML VIAL IV. PRN; +KETOROLAC TROMETHAMINE 30 MG/ML VIAL ONE; +LACTATED RINGER'S 1000ML 1,000 ML IV SCH; +LIDOCAINE HCL 2% 2 ML VIAL (20MG/ML) ONE; +LISI-461 PO; -LISI5TAB3 PO; -LPRUNK PO; +METO100T44 PO; +MIDAZOLAM HCL 1 MG/ML 2ML VIAL ONE; +NEOSTIGMINE METHYLSULFATE 1 MG/ML 10ML VIAL ONE; +ONDANSETRON INJ 2 MG/ML 2 ML VIAL IV PRN; +ONDANSETRON INJ 2 MG/ML 2 ML VIAL ONE; +OXYC-88 PO; +OXYCODONE HCL IR 5 MG TAB (IMMEDIATE RELEASE) PO PRN; +PROMETHAZINE HCL INJ 6.25 MG in SODIUM CHLORIDE 0.9% 50ML 50 ML IV PRN; +PROPOFOL IV EMULSION 10 MG/ML 20 ML VIAL IV ONE; +ROCURONIUM BROMIDE 10 MG/ML 5 ML VIAL IV ONE; +SYMIN160 INH; +VNTHFA/IN INH; +ZNTT/150 PO; -ZNTUNK
[2017-05-15 10:55] VITALS: BP 206/83; PULSE 49; TEMP 36.4; O2SAT 97; Ht 165.1 cm; Wt 136.5 kg
--- NOTE | 2017-05-15 12:58 | History & Physical Bridge Note ---
H&P Re-Evaluation Bridge Note: I have examined the patient, reviewed the History & Physical and in the interval since the performance of the History & Physical I have noted the following changes of clinical significance: No changes noted
--- NOTE | 2017-05-15 12:59 | History and Physical ---
History & Physical Date May 15, 2017. Chief Complaint Right leg pain History of Present Illness The patient is a 61 year old female with complaints of severe right leg pain Past Medical/Surgical History Medical Problems: (1) Asthma (2) Diabetes (3) Heart disease (4) History of cholecystectomy (5) Hypertension Surgical Problems: (1) H/O: hysterectomy (2) S/P triple vessel bypass Additional History Hepatic Disease: No Endocrine Disorder: No Kidney Disease: No Hypertension: Yes Heart Disease: No Bleeding Tendencies: No Infectious Diseases: No Allergies Coded Allergies: Azithromycin (Verified Allergy, Intermediate, RASH, 05/15/17) Dust Mite Extract (Verified Allergy, Intermediate, ALLERGIC, 05/15/17) Home Medications Scheduled Aspirin (Aspirin Ec), 81 MG PO DAILY Atorvastatin (Lipitor), 40 MG PO DAILY Budesonide/Formoterol Fumarate (Symbicort 160/4.5 Inhaler ), 2 PUFFS INH BID Citalopram Hydrobromide (Citalopram Hydrobromide), 20 MG PO DAILY Dexamethasone (Decadron), 4 MG PO UD Ergocalciferol (Vitamin D 09040 Unit), 50,000 UNIT PO WK Glimepiride (Glimepiride), 2 MG PO DAILY Isosorbide Mononitrate Ext Rel (Imdur Ext Rel), 30 MG PO DAILY Lisinopril (Zestril), 10 MG PO DAILY Metformin Hcl (Glucophage), 500 MG PO BIDM Metoprolol Succ (Toprol Xl) (Toprol-Xl ), 50 MG PO QAM Metoprolol Succ (Toprol Xl) (Toprol-Xl ), 100 MG PO QPM Oxycodone/Acetaminophen 10MG/325MG (Oxycodone/Acetaminophen 10MG/325MG), 1 TAB PO 1430 Ranitidine (Zantac), 150 MG PO DAILY Scheduled PRN Albuterol Hfa (Ventolin Hfa), 2 PUFFS INH Q4H PRN for SOB/Wheezing Cyclobenzaprine Hcl (Flexeril), 10 MG PO TID PRN for Muscle Spasms Physical Examination Skin: warm/dry, no rash Eyes: normal inspection, EOMI, sclerae normal ENT: normal ENT inspection, pharynx normal Head: normocephalic, atraumatic Neck: supple, no adenopathy, trachea midline Respiratory/Chest: lungs clear, normal breath sounds, no respiratory distress Cardiovascular: regular rate, rhythm, no edema, no murmur Abdomen / GI: normal bowel sounds, non tender Back: normal inspection Extremities: normal inspection, normal range of motion Neurologic/Psych: no motor/sensory deficits, alert, normal reflexes, oriented x 3 Diagnosis Far lateral disc herniation L4 5 on the right Plan of Treatment Far lateral discectomy of L4 5 on the right
--- NOTE | 2017-05-15 14:54 | Discharge Instructions ---
Discharge Instructions Date of Service May 15, 2017. Admission Reason for Admission: Intervertebral Disc Disorder With Radiculopathy Discharge Discharge Diagnosis / Problem: HNP L4-5 Discharge Goals Goal(s): Decrease discomfort Activity Recommendations Activity Limitations: per Instructions/Follow-up section . Instructions / Follow-Up Instructions / Follow-Up ACTIVITY RECOMMENDATIONS: SELF CARE INSTRUCTIONS AFTER A LAMINECTOMY 1. No prolonged sitting (less than 30 minutes for the first 3 weeks after surgery). 2. No bending, lifting more than 5 pounds, or twisting (roll like a log when turning in bed). 3. You may shower 3 days after surgery if no drainage from wound. Thoroughly dry wound. Do not soak in the tub. 4. Please walk as much as you can for exercise. Gradually increase the distance that you walk as your endurance increases. 5. You may drive in 7-10 days if you are comfortable and no longer requiring pain medications. SPECIAL CARE INSTRUCTIONS: VERY IMPORTANT TO READ AND REVIEW A. Your surgical incision has been closed with a cosmetic suture under the skin that will dissolve in about 6 weeks. In 14 days, you can use a pair of clean scissors and cut the suture that is left outside of the skin at the ends of your incision. B. Complications are uncommon, but please contact us if you have any signs or symptoms of: 1. wound infection (fever higher than 102.5 degrees F, redness, separation of wound, drainage, or increasing pain from the incision) 2. blood clots in legs (pain, swelling, redness and warmth in legs) 3. urinary tract infection (fever higher than 102.5 degrees, burning upon urination or increased frequency of urination) 4. nerve problems (inability to walk on your toes or heels, numbness, loss of bowel or bladder control) 5. any other symptoms that concern you. C. Please call the office at if you have any concerns or questions about your operation or recovery. MANAGING PAIN AFTER SPINAL SURGERY 1. Narcotic medication is intended for short-term use and will be provided for surgical pain. Surgical pain usually lasts for a period of 4-6 weeks. Narcotic medication includes Percocet, Vicodin, Darvocet, Tylenol #3 or Lortab. 2. Longer-term pain is more appropriately treated with non-narcotic medication such as Tylenol ES. 3. Muscle spasm is not appropriately treated with narcotics. Muscle relaxers such as Soma, Flexeril or Skelaxin can be used along with Tylenol ES. 4. Remember that we all live with some "aches and pains". This is not unusual or uncommon after an injury or as we get older. 5. We will provide appropriate medication within the normal guidelines of their prescribed use. We will also be very cautious and aware of potential abuse and extended duration of patients' medication needs. 6. Please allow 2-3 days to process refills. Prescriptions will not be mailed but must be picked up at the office. FOLLOW UP VISIT: Keep your scheduled follow-up appointment. Any questions, please call the office at . Current Hospital Diet Patient's current hospital diet: Discharge Diet Recommended Diet: Regular Diet Procedures Procedures Performed: Right L4-L5 Far Lateral Discectomy Pending Studies Studies pending at discharge: no Medical Emergencies . Who to Call and When: Medical Emergencies: If at any time you feel your situation is an emergency, please call 911 immediately. . Non-Emergent Contact Non-Emergency issues call your: Primary Care Provider . "Provider Documentation" section prepared by Harmeet Salinas. . VTE Core Measure Inpt VTE Proph given/why not?: Nelson Liu, SCD's
--- NOTE | 2017-05-15 14:59 | [facility] Operative Report ---
Operative Report Operative Date May 15, 2017. Pre-Operative Diagnosis Far lateral disc herniation L4 5 on the right Post-Operative Diagnosis Far lateral disc herniation L4 5 on the right Procedure(s) Performed Right L4-L5 Far Lateral Discectomy Surgeon Dr. Harmeet Salinas Division Field Inspector Surgeon(s) Lyly Sinha PA-C Estimated Blood Loss 20cc Findings L4 5 on the right far lateral nature. Description of Procedure Patient was met with preoperatively case discussed all questions addressed. After informed consent was obtained patient was taken to the operative suite underwent intubation placed in a prone position on the Eldon table on top of the Saurabh frame. All bony prominences were well-padded eyes inspected to ensure no external pressure placed upon them. This point the lumbar spine was prepped and draped nostril fashion. The assistance of fluoroscopy in AP and lateral planes we placed a cannula along the right L4 5 pars. I then used the [employer] system to dilate to a 22 mm retractor. This was locked into position. Then exposed the pars at the 45 level the exiting nerve root and identified a massive disc herniation a far lateral region L4 5 on the right. Several loose fragments were removed. The area was in copious irrigated. Incision was then closed with 1 Vicryl fascia 2-0 Vicryl subcutaneous tediously 4 Monocryl Monocryl for final skin closure Steri-Strips sterile dressings placed. Patient we can take PACU. Please note Lyly Sinha was present at the entire procedure involved in patient positioning complex portions of the surgery and final skin closure. I attest to the content of the Intraoperative Record and any orders documented therein. Any exceptions are noted below.
--- NOTE | 2017-05-15 15:05 | DIAGNOSTIC IMAGING REPORT ---
INTRAOPERATIVE LUMBAR SPINE 2 VIEWS CLINICAL HISTORY: L4-L5 FAR LATERAL DISCECTOMY COMPARISON STUDY: CT scan dated 05/11/2017 FINDINGS: 2 fluoroscopic spot images are provided for interpretation. 20 seconds of fluoroscopic time was utilized. 2 intraoperative fluoroscopic spot images are provided for interpretation. The first image demonstrates a metallic probe projected of the posterior aspect of the L4-5 disc. The second demonstrates metallic probe projected over the midportion of the L4-5 disc. IMPRESSION: Intraoperative radiographs for localization purposes. Electronically signed by: Talat Copeland M.D. 05/15/2017 3:04 PM Dictated Date/Time: 05/15/2017 3:03 PM
--- NOTE | 2017-05-15 15:42 | Anesthesiology Progress Note ---
Anesthesia Post Op Note Date & Time May 15, 2017 at 15:42 Vital Signs Pain Intensity: 0 Vital Signs Past 12 Hours Date Time Temp Pulse Resp B/P (MAP) Pulse Ox O2 Delivery O2 Flow Rate FiO2 05/15/17 15:30 53 16 162/59 94 Room Air 05/15/17 15:20 59 16 140/55 100 Oxymask 10 05/15/17 15:10 58 16 164/76 99 Oxymask 10 05/15/17 15:04 37.1 99 16 152/91 99 Oxymask 10 05/15/17 10:55 36.4 49 20 206/83 (124) 97 Room Air Notes Mental Status: alert / awake / arousable, participated in evaluation Pt Amnestic to Procedure: Yes Nausea / Vomiting: adequately controlled Pain: adequately controlled Airway Patency, RR, SpO2: stable & adequate BP & HR: stable & adequate Hydration State: stable & adequate Anesthetic Complications: no major complications apparent
[2017-05-15 15:57] VITALS: BP 150/67; PULSE 68; TEMP 36.5; O2SAT 97
[2017-05-15 16:27] VITALS: BP 145/60; PULSE 70; TEMP 36.6; O2SAT 93
[2017-05-15 16:57] VITALS: BP 128/60; PULSE 50; TEMP 36.6; O2SAT 95
== END | disposition home or self-care (01) ==
LOC: C.ACU 10:33
PROVIDERS: ATTEND Orthopaedic Surgery Orthopaedic Surgery of the Spine
DX: M51.26 Other intervertebral disc displacement, lumbar region (principal); J45.909 Unspecified asthma, uncomplicated; E11.9 Type 2 diabetes mellitus without complications; I10 Essential (primary) hypertension; I25.10 Atherosclerotic heart disease of native coronary artery without angina pectoris; Z90.49 Acquired absence of other specified parts of digestive tract; Z90.710 Acquired absence of both cervix and uterus; Z79.82 Long term (current) use of aspirin; E78.5 Hyperlipidemia, unspecified; E66.9 Obesity, unspecified

== ENCOUNTER → 2017-06-08 | Outpatient (CLI) | payer BC ==
[~2017-06-08] MED LIST changes: -ACETAMINOPHEN 325 MG TAB PO PRN; -ATROPINE SULFATE 0.1 MG/ML 5ML SYR IV PRN; -BACITRACIN 50000 UNIT VIAL ONE; -BUPIVACAINE/EPINEPHRINE 0.5% MPF 1:200,000 30 ML VIAL ONE; -CEFAZOLIN 1000MG IV PUSH 5 ML IV SCH; -CEFAZOLIN 3000MG IV PUSH 15 ML IV SCH; -DEXAMETHASONE SOD INJ 4 MG/ML VIAL ONE; -EpHEDrine SULFATE INJ 50 MG/ML AMP IV PRN; -FENTANYL CITRATE INJ 50 MCG/1 ML 2 ML VIAL IV PRN; -FENTANYL CITRATE INJ 50 MCG/1 ML 2 ML VIAL ONE; -FLOSEAL HEMOSTATIC MATRIX 5ML TOP ONE; -GLYCOPYRROLATE INJ 0.2 MG/ML VIAL ONE; -HYDROmorphone INJ 1 MG/ML SYR IV PRN; -HYDROmorphone INJ 2 MG/ML SYR/VIAL ONE; -HydrALAZINE HCL 20 MG/ML VIAL ONE; -KETOROLAC TROMETHAMINE 30 MG/ML VIAL IV. PRN; -KETOROLAC TROMETHAMINE 30 MG/ML VIAL ONE; -LACTATED RINGER'S 1000ML 1,000 ML IV SCH; -LIDOCAINE HCL 2% 2 ML VIAL (20MG/ML) ONE; -MIDAZOLAM HCL 1 MG/ML 2ML VIAL ONE; -NEOSTIGMINE METHYLSULFATE 1 MG/ML 10ML VIAL ONE; -ONDANSETRON INJ 2 MG/ML 2 ML VIAL IV PRN; -ONDANSETRON INJ 2 MG/ML 2 ML VIAL ONE; -OXYCODONE HCL IR 5 MG TAB (IMMEDIATE RELEASE) PO PRN; -PROMETHAZINE HCL INJ 6.25 MG in SODIUM CHLORIDE 0.9% 50ML 50 ML IV PRN; -PROPOFOL IV EMULSION 10 MG/ML 20 ML VIAL IV ONE; -ROCURONIUM BROMIDE 10 MG/ML 5 ML VIAL IV ONE
--- NOTE | 2017-06-08 14:38 | MAMMOGRAPHY REPORT ---
BILATERAL DIGITAL SCREENING MAMMOGRAM TOMOSYNTHESIS WITH CAD: 06/08/2017 CLINICAL HISTORY: Routine screening. Patient has no complaints. TECHNIQUE: Breast tomosynthesis in addition to standard 2D mammography was performed. Current study was also evaluated with a Computer Aided Detection (CAD) system. COMPARISON: Comparison is made to exams dated: 06/07/2016 mammogram, 06/05/2015 mammogram, 06/05/2015 gina reotactic biopsy, 05/20/2015 mammogram, 05/06/2014 mammogram, and 11/13/2013 mammogram - [facility]. BREAST COMPOSITION: There are scattered areas of fibroglandular density in both breasts. FINDINGS: No suspicious masses, calcifications, or areas of architectural distortion are noted in ei ther breast. There has been no significant interval change compared to prior exams. Bilateral benign -appearing calcifications are not significantly changed. A biopsy marker clip is again noted within the right upper outer quadrant from prior benign stereotactic biopsy. Nodular asymmetry in the left superior posterior breast on the MLO view is stable compared to multiple prior exams including the 20 12 exam. IMPRESSION: ACR BI-RADS CATEGORY 2: BENIGN There is no mammographic evidence of malignancy. A 1 year screening mammogram is recommended. The pa tient will receive written notification of the results. Approximately 10% of breast cancers are not detected with mammography. A negative mammographic report should not delay biopsy if a clinically suggestive mass is present. Jamila Loza M.D. /:06/08/2017 12:02:55 Watershed Tender: Susannah VIRGEN)(Eddie), [facility] letter sent: Normal 1/2 BI-RADS Code: ACR BI-RADS Category 2: Benign
== END | disposition home or self-care (01) ==
LOC: C.MAMM 09:17
PROVIDERS: ATTEND Internal Medicine
DX: Z12.31 Encounter for screening mammogram for malignant neoplasm of breast (principal)

== ENCOUNTER → 2017-06-12 | Outpatient (CLI) | payer BC ==
[2017-06-12 13:03] LABS: HEMOGLOBIN A1C 6.6 % (4.5-5.6)
[2017-06-12 13:11] LABS: ALBUMIN 3.4 gm/dl (3.4-5.0); ALT/SGPT 34 U/L (12-78); BLOOD UREA NITROGEN 15 mg/dl (7-18); CALCIUM 9.3 mg/dl (8.5-10.1); CARBON DIOXIDE 30 mmol/L (21-32); CHOLESTEROL 142 mg/dl (0-200); CREATININE 0.69 mg/dl (0.60-1.20); GLUCOSE 131 mg/dl (70-99); LDL CHOLESTEROL CALCULATED 64 mg/dl; POTASSIUM 4.5 mmol/L (3.5-5.1); SODIUM 138 mmol/L (136-145)
[2017-06-12 13:21] LABS: ALKALINE PHOSPHATASE 76 U/L (45-117); AST/SGOT 20 U/L (15-37)
== END | disposition home or self-care (01) ==
LOC: C.LABBFT 11:03
PROVIDERS: ATTEND Internal Medicine
DX: E11.9 Type 2 diabetes mellitus without complications (principal); E55.9 Vitamin D deficiency, unspecified

== ENCOUNTER → 2017-12-15 | Outpatient (CLI) | payer BC ==
[~2017-12-15] MED LIST changes: -DXM/4 PO; +OXYC-594 PO; -OXYC-88 PO; +RANI150T85 PO; -ZNTT/150 PO
[2017-12-15 12:32] LABS: HEMATOCRIT 41.8 % (37-47); HEMOGLOBIN 13.4 g/dL (12.0-16.0); MEAN CELL VOLUME 94.1 fL (80-100); MEAN CORPUSCULAR HEMOGLOBIN 30.2 pg (25-34); MEAN CORPUSCULAR HGB CONC 32.1 g/dl (32-36); MEAN PLATELET VOLUME 10.2 fL (7.4-10.4); PLATELET COUNT 234 K/uL (130-400); RED CELL DISTRIBUTION WIDTH SD 47.8 fL (36.4-46.3); WHITE BLOOD COUNT 8.05 K/uL (4.8-10.8)
[2017-12-15 12:41] LABS: HEMOGLOBIN A1C 6.9 % (4.5-5.6)
[2017-12-15 12:58] LABS: ALBUMIN 3.3 gm/dl (3.4-5.0); ALKALINE PHOSPHATASE 100 U/L (45-117); ALT/SGPT 32 U/L (12-78); AST/SGOT 17 U/L (15-37); BLOOD UREA NITROGEN 22 mg/dl (7-18); CALCIUM 8.8 mg/dl (8.5-10.1); CARBON DIOXIDE 28 mmol/L (21-32); CHOLESTEROL 122 mg/dl (0-200); CREATININE 0.76 mg/dl (0.60-1.20); GLUCOSE 124 mg/dl (70-99); LDL CHOLESTEROL CALCULATED 52 mg/dl; POTASSIUM 4.4 mmol/L (3.5-5.1); SODIUM 138 mmol/L (136-145); TOTAL PROTEIN 7.4 gm/dl (6.4-8.2)
== END | disposition home or self-care (01) ==
LOC: C.LABBFT 07:37
PROVIDERS: ATTEND Internal Medicine
DX: E11.9 Type 2 diabetes mellitus without complications (principal); I25.10 Atherosclerotic heart disease of native coronary artery without angina pectoris; E55.9 Vitamin D deficiency, unspecified

== ENCOUNTER → 2018-01-03 | Outpatient (CLI) | payer BC ==
--- NOTE | 2018-01-03 18:16 | DIAGNOSTIC IMAGING REPORT ---
L SHOULDER MIN 2 VIEWS ROUTINE CLINICAL HISTORY: S49.92XA Shoulder injury, left, initial [id number] trauma. Pain. COMPARISON: None. DISCUSSION: Moderate degenerative change. Mild calcific supraspinatus tendinitis. No evidence of fracture or dislocation. There is no evidence for soft tissue swelling. IMPRESSION: Moderate degenerative change. Calcific supraspinatus tendinitis. No acute process. The above report was generated using voice recognition software. It may contain grammatical, syntax or spelling errors. Electronically signed by: Ulices Vargas M.D. 01/03/2018 6:15 PM Dictated Date/Time: 01/03/2018 6:14 PM
== END | disposition home or self-care (01) ==
LOC: C.RAD 17:40
PROVIDERS: ATTEND Nurse Practitioner
DX: M75.32 Calcific tendinitis of left shoulder (principal); M19.012 Primary osteoarthritis, left shoulder; X58.XXXA Exposure to other specified factors, initial encounter